=== PATIENT | male | born 1955 | race American Indian/Alaskan Native ===

== ENCOUNTER 2022-03-17 16:25 | Emergency (ER) | payer SELFPAY ==
[2022-03-17 17:36] VITALS: BP 135/87
--- NOTE | 2022-03-17 20:33 | Emergency Department Report ---
ED Male HPI - General Chief complaint: Urogenital-Male Stated complaint: CAN NOT URINE Time Seen by Provider: 03/17/22 20:16 Source: patient Mode of arrival: Ambulatory Limitations: No Limitations - History of Present Illness Initial comments: 66-year male with no past medical history presents to the hospital pain and urinary retention. Last urine output was last night. For the past 6 months patient has had increasing difficulty with urination requiring straining and decreased output. Patient presented with 10/10 suprapubic randi pain. Paniagua cath was placed in triage with relief of pain and drainage of urine. At time of my evaluation patient has 900 mL of urine in the bag at the bedside. No fever reported. Patient plans to follow-up with a friend who is a urologist in 4 days - Related Data Previous Rx's Medication Instructions Recorded Last Taken Type Tamsulosin [Flomax] 0.4 mg PO QDAY #30 cap 03/17/22 Unknown Rx Allergies Allergy/AdvReac Type Severity Reaction Status Date / Time No Known Allergies Allergy Unverified 03/17/22 17:40 ED Review of Systems ROS: Stated complaint: CAN NOT URINE Other details as noted in HPI Comment: All other systems reviewed and negative ED Past Medical Hx - Past Medical History Previous Medical History?: No - Medications Home Medications: Home Medications Medication Instructions Recorded Confirmed Last Taken Type Tamsulosin [Flomax] 0.4 mg PO QDAY #30 cap 03/17/22 Unknown Rx ED Physical Exam - General Limitations: No Limitations - Other Other exam information: General: No acute distress Head: Atraumatic Eyes: normal appearance ENT: Moist mucous membranes Neck: Normal appearance, no midline tenderness Chest: Clear to auscultation bilaterally CV: Regular rate and rhythm Abdomen: Soft, normal bowel sounds, nontender, nondistended, no rebound or guarding : 16 [place] P[place] catheter in place 100 mL of urine Back: Normal inspection Extremity: Normal inspection, full range of motion Neuro: Alert O x 3, no facial asymmetry, speech clear, no gross motor sensory deficit Psych: Appropriate behavior Skin: No rash ED Course Vital Signs 03/17/22 17:33 Temperature 97.6 F Pulse Rate 98 H Respiratory 18 Rate Blood Pressure 135/87 [Left] O2 Sat by Pulse 99 Oximetry ED Medical Decision Making - Lab Data Result diagrams: 03/17/22 20:09 03/17/22 20:09 Lab Results 03/17/22 03/17/22 03/17/22 Range/Units 20:09 20:09 Unknown WBC 7.9 (4.5-11.0) K/mm3 RBC 4.74 (3.65-5.03) M/mm3 Hgb 14.4 (11.8-15.2) gm/dl Hct 43.9 (35.5-45.6) % MCV 93 (84-94) fl MCH 31 (28-32) pg MCHC 33 (32-34) % RDW 13.5 (13.2-15.2) % Plt Count 196 (140-440) K/mm3 Lymph % (Auto) 7.7 L (13.4-35.0) % [place] % (Auto) 4.6 (0.0-7.3) % Eos % (Auto) 0.9 (0.0-4.3) % Baso % (Auto) 0.5 (0.0-1.8) % Lymph # (Auto) 0.6 L (1.2-5.4) K/mm3 [place] # (Auto) 0.4 (0.0-0.8) K/mm3 Eos # (Auto) 0.1 (0.0-0.4) K/mm3 Baso # (Auto) 0.0 (0.0-0.1) K/mm3 Seg Neutrophils % 86.3 H (40.0-70.0) % Seg Neutrophils # 6.8 (1.8-7.7) K/mm3 Sodium 142 (137-145) mmol/L Potassium 4.6 (3.6-5.0) mmol/L Chloride 106.5 (98-107) mmol/L Carbon Dioxide 23 (22-30) mmol/L Anion Gap 17 mmol/L BUN 18 (9-20) mg/dL Creatinine 1.2 (0.8-1.3) mg/dL Estimated GFR > 60 ml/min BUN/Creatinine Ratio 15 % Glucose 114 H (75-100) mg/dL Calcium 9.6 (8.4-10.2) mg/dL Total Bilirubin 0.70 (0.1-1.2) mg/dL AST 21 (5-40) units/L ALT 17 (7-56) units/L Alkaline Phosphatase 69 (35-129) units/L Total Protein 7.0 (6.3-8.2) g/dL Albumin 4.4 (3.9-5) g/dL Albumin/Globulin Ratio 1.7 % Urine Color Yellow (Yellow) Urine Turbidity Hazy (Clear) Ur Protein (Man) 1+ (Negative) mg/dL Ur Ketones (Man) Negative (Negative) Ur Nitrite (Man) Negative (Negative) Ur Reducing Substances Not Reportable Urine Ictotest Negative (Negative) Leukocyte Esterase (Man) Negative (Negative) Urine WBC (Auto) 5.0 (0.0-6.0) /HPF Urine RBC (Auto) 78.0 (0.0-6.0) /HPF U Epithel Cells (Auto) < 1.0 (0-13.0) /HPF Urine RBC (Manual) 2+ (Negative) Urine Mucus Few /HPF - Radiology Data Radiology results: report reviewed CT ABDOMEN AND PELVIS WITHOUT CONTRAST INDICATION / CLINICAL INFORMATION: urine retention. TECHNIQUE: Axial CT images were obtained through the abdomen and pelvis without IV contrast. All CT scans at this location are performed using CT dose reduction for EigentaRA by means of automated exposure control. COMPARISON: None available. FINDINGS: LOWER CHEST: No significant abnormality. LIVER: No significant abnormality. GALLBLADDER: No significant abnormality. BILE DUCTS: No significant abnormality. PANCREAS: No significant abnormality. SPLEEN: No significant abnormality. ADRENALS: No significant abnormality. RIGHT KIDNEY / URETER: No obstructing stones. Mild hydroureteronephrosis. LEFT KIDNEY / URETER: No obstructing stones. Mild hydroureteronephrosis. STOMACH / SMALL BOWEL: No significant abnormality. COLON: No significant abnormality. APPENDIX: No significant abnormality. PERITONEUM: No free fluid. No free air. No fluid collection. LYMPH NODES: No significant adenopathy. AORTA / ARTERIES: No significant abnormality. IVC / VEINS: No significant abnormality. URINARY BLADDER: Contracted around a P[place] catheter. REPRODUCTIVE ORGANS: Prostate is enlarged. Prostate measures 7.0 x 6.0 x 6.0 cm. ADDITIONAL FINDINGS: None. SKELETAL SYSTEM: No significant abnormality. IMPRESSION: 1. Enlarged prostate probably causing chronic urinary bladder outlet obstruction. 2. Mild bilateral hydroureteronephrosis likely related to bladder obstruction. - Medical Decision Making 66-year male presents with progressively worsening urinary symptoms with acute urinary retention likely secondary to a large prostate which was identified on CAT scan. Patient is noted to have hydroureteronephrosis without signs of renal insufficiency or infection. Patient received immediate relief with bladder drainage. Patient plans to follow-up with his outpatient urologist. He is provided a copy of his labs and imaging studies for follow-up visit. He will be prescribed Flomax and a leg bag will be provided prior to discharge Critical Care Time: No Critical care attestation.: If time is entered above; I have spent that time in minutes in the direct care of this critically ill patient, excluding procedure time. ED Disposition Clinical Impression: Acute retention of urine, Enlarged prostate, Hydroureteronephrosis Disposition: HOME / SELF CARE / HOMELESS Is pt being admited?: No Does the pt Need Aspirin: No Condition: Stable Instructions: Hydronephrosis, Acute Urinary Retention, Male, [id number], Indwelling Urinary Catheter Care, Adult, [id number], Benign Prostatic Hyperplasia Additional Instructions: Take the medication as prescribed. Follow-up with your urologist as discussed or the urologist provided. Take the copy of your labs and CAT scan provided to your doctor for your follow-up visit. Continue Paniagua catheter care as described on your discharge papers until removal by a urologist. Please return if symptoms worsen as indicated by your discharge instructions Prescriptions: Tamsulosin [Flomax] 0.4 mg PO QDAY #30 cap Referrals: SARAH BA MD [Staff Physician] - 3-5 Days Time of Disposition: 22:31
[2022-03-17 20:37] LABS: Alanine Aminotransferase 17 units/L (7-56); Albumin 4.4 g/dL (3.9-5); BUN/Creatinine Ratio 15; Blood Urea Nitrogen 18 mg/dL (9-20); Calcium 9.6 mg/dL (8.4-10.2); Hemolysis Index 11
[2022-03-17 20:40] LABS: Basophils % (Auto) 0.5 % (0.0-1.8); Eosinophils # (Auto) 0.1 K/mm3 (0.0-0.4); Eosinophils % (Auto) 0.9 % (0.0-4.3); Hematocrit 43.9 % (35.5-45.6); Hemoglobin 14.4 gm/dl (11.8-15.2); Lymphocytes # (Auto) 0.6 K/mm3 (1.2-5.4); Lymphocytes % (Auto) 7.7 % (13.4-35.0); Mean Corpuscular HGB Conc 33 % (32-34); Mean Corpuscular Volume 93 fl (84-94); Monocytes # (Auto) 0.4 K/mm3 (0.0-0.8); Monocytes % (Auto) 4.6 % (0.0-7.3); Platelet Count 196 K/mm3 (140-440); Red Blood Count 4.74 M/mm3 (3.65-5.03); Red Cell Distribution Width 13.5 % (13.2-15.2)
[2022-03-17 21:02] LABS: Mucus,Urine FEW /HPF
[2022-03-17 21:13] LABS: Color,Urine Yellow (Yellow); Ictotest,Urine Negative (Negative)
--- NOTE | 2022-03-17 21:25 | Cat Scan Report ---
CT ABDOMEN AND PELVIS WITHOUT CONTRAST INDICATION / CLINICAL INFORMATION: urine retention. TECHNIQUE: Axial CT images were obtained through the abdomen and pelvis without IV contrast. All CT scans at this location are performed using CT dose reduction for ALARA by means of automated exposure control. COMPARISON: None available. FINDINGS: LOWER CHEST: No significant abnormality. LIVER: No significant abnormality. GALLBLADDER: No significant abnormality. BILE DUCTS: No significant abnormality. PANCREAS: No significant abnormality. SPLEEN: No significant abnormality. ADRENALS: No significant abnormality. RIGHT KIDNEY / URETER: No obstructing stones. Mild hydroureteronephrosis. LEFT KIDNEY / URETER: No obstructing stones. Mild hydroureteronephrosis. STOMACH / SMALL BOWEL: No significant abnormality. COLON: No significant abnormality. APPENDIX: No significant abnormality. PERITONEUM: No free fluid. No free air. No fluid collection. LYMPH NODES: No significant adenopathy. AORTA / ARTERIES: No significant abnormality. IVC / VEINS: No significant abnormality. URINARY BLADDER: Contracted around a [place] catheter. REPRODUCTIVE ORGANS: Prostate is enlarged. Prostate measures 7.0 x 6.0 x 6.0 cm. ADDITIONAL FINDINGS: None. SKELETAL SYSTEM: No significant abnormality. IMPRESSION: 1. Enlarged prostate probably causing chronic urinary bladder outlet obstruction. 2. Mild bilateral hydroureteronephrosis likely related to bladder obstruction. Signer Name: Josue Astudillo MD Signed: 03/17/2022 9:20 PM Workstation Name: [id number]
== END 2022-03-17 23:33 | disposition home or self-care (01) ==
LOC: ED 16:25
DX: R33.9 Retention of urine, unspecified (principal); N40.1 Benign prostatic hyperplasia with lower urinary tract symptoms; N13.2 Hydronephrosis with renal and ureteral calculous obstruction
CPT/HCPCS: 36415; 51702; 74176; 80053; 81001; 85025; 99284